=== PATIENT | female | born 1960 | race Caucasian/White ===

== ENCOUNTER 2017-10-02 04:09 | Observation (INO) | payer BC ==
[~2017-10-02] VITALS: Ht 160 cm; Wt 73.7 kg
[~2017-10-02 04:09] MED LIST: CALTRATE PLUS1 EACH PO; LEXAPRO10 MG PO; LEXAPRO5 MG PO; MULTIPLE VITAM1 EACH PO; NEXIUM40 MG PO; REQUIP2 MG PO
[2017-10-02 04:48] LABS: HEMATOCRIT 37.3 % (36.0-46.0); MCH 31.4 PG (29.0-34.0); MCHC 33.2 G/DL (30.0-36.0); MCV 94.4 FL (83-99); MEAN PLAT.VOLUME 12.4 uM^3 (9.5-12.4); PLATELET COUNT 242 K/uL (156-360); RBC DIS.WIDTH-CV 13.3 % (11.8-14.6); RBC DIS.WIDTH-SD 46.5 % (39-53); RED BLOOD COUNT 3.95 M/uL (3.80-5.20)
[2017-10-02 05:17] LABS: D-DIMER ELISA < 150.00 ng/mLDDU (<230); TROP-I INTERPRETATION NEGATIVE; TROPONIN-I < 0.01 ng/mL (0.0-0.30)
[2017-10-02 05:30] LABS: CHLORIDE 111 mEq/L (99-109); POTASSIUM 3.7 mEq/L (3.7-5.4); SODIUM 139 mEq/L (136-147)
[2017-10-02 05:32] LABS: GLUCOSE 104 mg/dL (70-99)
[2017-10-02 05:34] LABS: ANION GAP 5 MEQ/L (2-14); TOTAL BILIRUBIN 0.3 mg/dL (0.0-1.0)
[2017-10-02 05:36] LABS: ALKALINE PHOSPHATASE 99 IU/L (3-129); GFR ESTIMATE (CALCULATED) > 59 mL/min/
[2017-10-02 05:37] LABS: UREA NITROGEN (BUN) 19 mg/dL (9-23)
[2017-10-02 05:38] LABS: DIRECT BILIRUBIN 0.1 mg/dL (0.0-0.3)
[2017-10-02 05:39] LABS: LIPASE 15 U/L (1.0-51.0)
[2017-10-02 09:05] VITALS: BP 178/80
[2017-10-02 13:18] LABS: TROP-I INTERPRETATION NEGATIVE; TROPONIN-I < 0.01 ng/mL (0.0-0.30)
[2017-10-02 19:38] VITALS: BP 139/77
[2017-10-02 21:18] LABS: TROP-I INTERPRETATION NEGATIVE; TROPONIN-I < 0.01 ng/mL (0.0-0.30)
[2017-10-02 23:36] VITALS: BP 142/79
[2017-10-03 03:30] VITALS: BP 140/91
[2017-10-03 08:05] VITALS: BP 137/84
[2017-10-03] MEDS ORDERED: ASPIR-LOW81 MG PO (09:25)
== END 2017-10-03 11:55 | disposition home or self-care (01) ==
LOC: EME 04:09 → EDOF 05:56 → 5WEST 05:56 → EDOF 05:56 → CANRESERV 05:57 → ENRESERV 05:57 → EDOF 08:28 → 5WEST 09:00
PROVIDERS: Internal Medicine
DX: R07.9 Chest pain, unspecified (principal); R06.09 Other forms of dyspnea; I10 Essential (primary) hypertension; Z82.49 Family history of ischemic heart disease and other diseases of the circulatory system; D64.9 Anemia, unspecified; F41.9 Anxiety disorder, unspecified; F32.9 Major depressive disorder, single episode, unspecified; G25.81 Restless legs syndrome; K21.9 Gastro-esophageal reflux disease without esophagitis
CPT/HCPCS: 71020; 76705; 80048; 80076; 83690; 84484; 85027; 85379; 93005; 99281; 99284; G0378

== ENCOUNTER 2018-05-24 04:34 | Day surgery (SDC) | payer BC ==
[~2018-05-24] VITALS: Ht 160 cm; Wt 72.7 kg
[~2018-05-24 04:34] MED LIST changes: +ASPIR-LOW81 MG PO
[2018-05-24 05:02] LABS: BASOPHIL (%) 0.6 % (0-1); BASOPHIL COUNT 0.1 K/uL (0-0.1); EOSINOPHIL (%) 2.4 % (0-5); EOSINOPHIL COUNT 0.3 K/uL (0-0.3); HEMATOCRIT 38.7 % (36.0-46.0); IMMATURE GRANULOCYTE (%) 0.3 % (0.0-0.7); LYMPHOCYTE (%) 21.9 % (15-42); LYMPHOCYTE COUNT 2.5 K/uL (1.0-2.8); MCH 31.3 PG (29.0-34.0); MCHC 33.6 G/DL (30.0-36.0); MONOCYTE (%) 5.2 % (3-12); MONOCYTE COUNT 0.6 K/uL (0-0.8); NEUTROPHIL (%) 69.6 % (45-76); NEUTROPHIL COUNT 8.1 K/uL (1.8-6.4); PLATELET COUNT 247 K/uL (156-360); RBC DIS.WIDTH-CV 13.3 % (11.8-14.6); RBC DIS.WIDTH-SD 45.6 % (39-53); RED BLOOD COUNT 4.16 M/uL (3.80-5.20); WHITE BLOOD COUNT 11.6 K/uL (4.1-10.2)
[2018-05-24 05:21] LABS: ALBUMIN 3.8 g/dL (3.2-4.8); CHLORIDE 108 mEq/L (99-109); POTASSIUM 4.1 mEq/L (3.7-5.4); SODIUM 141 mEq/L (136-147)
[2018-05-24 05:23] LABS: GLUCOSE 104 mg/dL (70-99); TOTAL PROTEIN 6.6 g/dL (6.4-8.3); TROP-I INTERPRETATION NEGATIVE; TROPONIN-I < 0.01 ng/mL (0.0-0.30)
[2018-05-24 05:25] LABS: TOTAL BILIRUBIN 0.8 mg/dL (0.0-1.0)
[2018-05-24 05:27] LABS: ALKALINE PHOSPHATASE 116 IU/L (3-129); GFR ESTIMATE (CALCULATED) > 59 mL/min/
[2018-05-24 05:28] LABS: UREA NITROGEN (BUN) 16 mg/dL (9-23)
[2018-05-24 05:29] LABS: AST (GOT) 60 IU/L (2-34)
[2018-05-24 05:30] LABS: ALT (GPT) 32 IU/L (3-49); LIPASE 22 U/L (1.0-51.0)
[2018-05-24] MEDS ORDERED: ZESTRIL10 MG PO (07:40)
[2018-05-24] MEDS ORDERED: NORCO 5/3251 TABLET PO (12:09)
[2018-05-24 13:54] VITALS: BP 144/73
[2018-05-24 15:01] VITALS: BP 164/74
== END 2018-05-24 15:17 | disposition home or self-care (01) ==
LOC: EME 04:34 → SDC 10:02 → 2SOUTH 10:03 → SDC 15:17
PROVIDERS: Emergency Medicine
PROC: 0FT44ZZ Resection of Gallbladder, Percutaneous Endoscopic Approach (ICD-10-PCS; principal; 2018-05-24)
DX: K80.12 Calculus of gallbladder with acute and chronic cholecystitis without obstruction (principal); I10 Essential (primary) hypertension
CPT/HCPCS: 71046; 76705; 80053; 83690; 84484; 85025; 88304; 93005; 99281; 99285; J0131; J0330; J1100; J1170; J2405; J2710; J3010; J7030; J7643; S0074